=== PATIENT | male | born 1995 | race Caucasian/White ===

== ENCOUNTER 2021-03-14 14:54 | Emergency (ER) | payer SELFPAY ==
[~2021-03-14] VITALS: Ht 172.7 cm; Wt 93.1 kg
--- NOTE | 2021-03-14 16:30 | PHYS DOC ---
Past Medical History Past Surgical History: No Surgical History Smoking Status: Current Every Day Smoker Alcohol Use: Occasionally General Adult EDM: Chief Complaint: FLU SYMPTOM HPI: HPI: Patient is a 25 year old male who presents to the ED today complaining about scratchy throat, body aches, fevers, headaches, symptoms of been going on since Monday. Patient denies any chest pain or shortness of breath. He states several family members have similar symptoms. Patient states he had an upper respiratory infection last week and was tested for COVID-19 and was negative. He is unvaccinated Review of Systems: Review of Systems: Constitutional: reports fever, body aches Eyes: Denies change in visual acuity. [] HENT: Reports scratchy throat. denies nasal congestion or sore throat. [] Respiratory: Denies cough or shortness of breath. [] Cardiovascular: Denies chest pain or edema. [] GI: Denies abdominal pain, nausea, vomiting, bloody stools or diarrhea. [] : Denies dysuria. [] Musculoskeletal: Denies back pain or joint pain. [] Integument: Denies rash. [] Neurologic: Denies headache, focal weakness or sensory changes. [] Psychiatric: Denies depression or anxiety. [] Heart Score: C/O Chest Pain: N/A Risk Factors: Risk Factors: DM, Current or recent (<one month) smoker, HTN, HLP, family history of CAD, obesity. Risk Scores: Score 0 - 3: 2.5% MACE over next 6 weeks - Discharge Home Score 4 - 6: 20.3% MACE over next 6 weeks - Admit for Clinical Observation Score 7 - 10: 72.7% MACE over next 6 weeks - Early Invasive Strategies Physical Exam: PE: Constitutional: Well developed, well nourished, no acute distress, non-toxic appearance. [] HENT: Normocephalic, atraumatic, bilateral external ears normal, oropharynx moist, no oral exudates, nose normal. [] Eyes: PERRLA, EOMI, conjunctiva normal, no discharge. [] Neck: Normal range of motion, no tenderness, supple, no stridor. [] Cardiovascular:Heart rate regular rhythm, no murmur [] Lungs & Thorax: Bilateral breath sounds clear to auscultation [] Abdomen: Bowel sounds normal, soft, no tenderness, no masses, no pulsatile masses. [] Skin: Warm, dry, no erythema, no rash. [] Back: No tenderness, no CVA tenderness. [] Extremities: No tenderness, no cyanosis, no clubbing, ROM intact, no edema. [] Neurologic: Alert and oriented X 3, normal motor function, normal sensory function, no focal deficits noted. [] Psychologic: Affect normal, judgement normal, mood normal. [] Current Patient Data: Vital Signs: Vital Signs Date Time Temp Pulse Resp B/P (MAP) Pulse Ox O2 Delivery O2 Flow Rate FiO2 03/14/21 15:32 99.6 103 20 138/91 96 99.6 EKG: EKG: [] Radiology/Procedures: Radiology/Procedures: [] Course & Med Decision Making: Course & Med Decision Making Pertinent Labs and Imaging studies reviewed. (See chart for details) This a 25-year-old male patient complaining of fever, body aches, scratchy throat, headaches, symptoms for 3 days. Will be tested for COVID-19 and results will be called to him. Supportive care measures recommended. Dragon Disclaimer: Yenny Disclaimer: This electronic medical record was generated, in whole or in part, using a voice recognition dictation system. Departure Departure Impression: Primary Impression: Fever Qualified Codes: R50.82 - Postprocedural fever Additional Impressions: Body aches Headache Qualified Codes: R51.9 - Headache, unspecified Person under investigation for COVID-19 Disposition: HOME / SELF CARE / HOMELESS Condition: STABLE Patient Instructions: Fever, Adult, [id number] Additional Instructions: You were evaluated in the emergency room, you were tested for COVID-19. We will call you when results are available. In the meantime, push fluids, rest, maintain good hand hygiene, take [id number] Tylenol or Motrin for pain or fever. Follow-up with your doctor in 1 week CHASE DE LEON APRN Mar 14, 2021 16:29
[2021-03-14 17:50] VITALS: BP 136/86
== END 2021-03-14 17:50 | disposition home or self-care (01) ==
LOC: ER 14:54
DX: U07.1 COVID-19 (principal); R50.82 Postprocedural fever; F17.200 Nicotine dependence, unspecified, uncomplicated
CPT/HCPCS: 87426; 99283